=== PATIENT | female | born 1940 | race African-American/Black ===

== ENCOUNTER 2017-02-12 06:55 | Day surgery (SDC) | payer MEDICARE ==
[2017-02-12] MEDS ORDERED: DIPRIVAN 10 MG/ML IV ONE ×2 (07:32)
--- NOTE | 2017-02-12 07:53 | Anesthesia Day of Surgery ---
Anesthesia Day of Surgery - Day of Surgery Patient Examined: Yes Patient H&P Reviewed: Yes Patient is NPO: Yes
--- NOTE | 2017-02-12 07:53 | Anesthesia Consultation ---
Anesthesia Consult and Med Hx Date of service: 02/12/17 - Airway Anesthetic Teeth Evaluation: Poor ROM Head & Neck: Adequate Mental/Hyoid Distance: Adequate Mallampati Class: Class II Intubation Access Assessment: Probably Good - Pulmonary Exam CTA: Yes - Cardiac Exam Cardiac Exam: RRR - Pre-Operative Health Status ASA Pre-Surgery Classification: ASA3 Proposed Anesthetic Plan: MAC - Cardiovascular System Hx Hypertension: Yes - Gastrointestinal Hx Gastroesophageal Reflux Disease: Yes - Endocrine Hx Non-Insulin Dependent Diabetes: Yes
[2017-02-12] MEDS ORDERED: NACL 0.9% 1000 ML 1,000 ML IV SCH (08:00)
[2017-02-12] MEDS ORDERED: XYLOCAINE 2% INFILTRATI ONE (08:18)
[2017-02-12] MEDS ORDERED: ROBINUL ONE (08:37)
--- NOTE | 2017-02-12 08:55 | Short Stay Summary ---
Short Stay Documentation - Allergies and Medications Current Medications: Allergies No Known Allergies Allergy (Verified 09/17/15 11:51) Home Medications Medication Instructions Recorded Confirmed Last Taken Type AtorvaSTATin 1 cap PO DAILY 09/17/15 09/18/15 09/16/15 History Benzonatate 1 cap PO DAILY 09/17/15 09/18/15 09/16/15 History Meclizine 1 tab PO PRN PRN 09/17/15 09/18/15 09/16/15 History Metoprolol 1 tab PO DAILY 09/17/15 09/18/15 09/17/15 History Norvasc 1 tab PO DAILY 09/17/15 09/18/15 09/16/15 History Omeprazole [Omeprazole] 1 cap PO DAILY 09/17/15 09/18/15 09/16/15 History Ranitidine HCl [Zantac 300 MG TAB] 1 tab PO DAILY 09/17/15 09/18/15 09/16/15 History Active Medications Sodium Chloride (Nacl 0.9% 1000 Ml) 1,000 mls @ 50 mls/hr IV DIRECT MARY Last Admin: 02/12/17 07:53 Dose: 50 mls/hr - Brief post op/procedure progress note Date of procedure: 02/12/17 Pre-op diagnosis: Colon cancer screening Post-op diagnosis: same (1. Incomplete colonoscopy due to a poor prep 2. Internal hemorrhoids) Procedure: Colonoscopy ( incomplete) Anesthesia: MAC Findings: As above Surgeon: WILBER RECINOS Estimated blood loss: none Pathology: none Condition: stable - Disposition Condition at discharge: Stable Disposition: DISCHARGED TO HOME OR SELFCARE Short Stay Discharge Plan Activity: no restrictions Weight Bearing Status: Full Weight Bearing Diet: regular Follow up with: BOLIVAR SANCHEZ III, MD [Primary Care Provider] - 7 Days
[2017-02-12 09:15] VITALS: BP 150/81
[2017-02-12] MEDS ORDERED: WATER FOR IRRIG STERILE IR ONE (09:40)
--- NOTE | 2017-02-12 13:45 | Post Anesthesia Evaluation ---
- Post Anesthesia Evaluation Patient Participated: Yes Airway Patent: Yes Stable Respiratory Function: Yes Nausea/Vomiting: No Temp > 96.8F: Yes Pain Manageable: Yes Adequeate Hydration: Yes Anesthesia Complications: No Block Receding Appropriately: Not Applicable Patient on Ventilator: No
== END 2017-02-12 06:56 | disposition home or self-care (01) ==
LOC: GIO 06:55
PROVIDERS: ATTEND Internal Medicine Gastroenterology
DX: Z12.11 Encounter for screening for malignant neoplasm of colon (principal); K64.0 First degree hemorrhoids; I10 Essential (primary) hypertension; E11.9 Type 2 diabetes mellitus without complications; E78.00 Pure hypercholesterolemia, unspecified; K21.9 Gastro-esophageal reflux disease without esophagitis; Z98.41 Cataract extraction status, right eye; Z98.890 Other specified postprocedural states
CPT/HCPCS: 82962; G0121; J2704; J7030

== ENCOUNTER 2017-04-12 22:58 | Emergency (ER) | payer MEDICARE ==
[2017-04-13] MEDS ORDERED: NACL 0.9% 1000 ML 1,000 ML IV ONE ×2 (00:05→00:06)
[2017-04-13] MEDS ORDERED: ZOFRAN IV ONE (00:06)
--- NOTE | 2017-04-13 00:12 | Emergency Department Report ---
ED N/V/D HPI - General Stated complaint: ABDOMINAL PAIN Time Seen by Provider: 04/12/17 23:57 Source: patient - History of Present Illness complaint: nausea, vomiting, abdominal pain -: Gradual Description of Vomiting: food contents, watery Associated Abdominal Pain: Yes Location: diffuse (no pain in the ER) Radiation: none Severity: mild Pain Scale: 2 Quality: cramping Consistency: intermittent Improves with: none Worsens with: none Associated Symptoms: nausea/vomiting. denies: myalgias, chest pain, cough, diaphoresis, fever/chills, headaches, loss of appetite, malaise, shortness of breath, syncope - Related Data Home Medications Medication Instructions Recorded Confirmed Last Taken AtorvaSTATin 1 cap PO DAILY 09/17/15 09/18/15 09/16/15 Benzonatate 1 cap PO DAILY 09/17/15 09/18/15 09/16/15 Meclizine 1 tab PO PRN PRN 09/17/15 09/18/15 09/16/15 Metoprolol 1 tab PO DAILY 09/17/15 09/18/15 09/17/15 Norvasc 1 tab PO DAILY 09/17/15 09/18/15 09/16/15 Omeprazole [Omeprazole] 1 cap PO DAILY 09/17/15 09/18/15 09/16/15 Ranitidine HCl [Zantac 300 MG TAB] 1 tab PO DAILY 09/17/15 09/18/15 09/16/15 Previous Rx's Medication Instructions Recorded Last Taken Type Ondansetron [Zofran Odt] 4 mg PO Q8HR #15 tab.rapdis 04/13/17 Unknown Rx Allergies Allergy/AdvReac Type Severity Reaction Status Date / Time No Known Allergies Allergy Verified 09/17/15 11:51 ED Review of Systems ROS: Stated complaint: ABDOMINAL PAIN Other details as noted in HPI Comment: All other systems reviewed and negative ED Past Medical Hx - Past Medical History Hx Hypertension: Yes Hx HIV: No - Social History Smoking Status: Never Smoker - Medications Home Medications: Home Medications Medication Instructions Recorded Confirmed Last Taken Type AtorvaSTATin 1 cap PO DAILY 09/17/15 09/18/15 09/16/15 History Benzonatate 1 cap PO DAILY 09/17/15 09/18/15 09/16/15 History Meclizine 1 tab PO PRN PRN 09/17/15 09/18/15 09/16/15 History Metoprolol 1 tab PO DAILY 09/17/15 09/18/15 09/17/15 History Norvasc 1 tab PO DAILY 09/17/15 09/18/15 09/16/15 History Omeprazole [Omeprazole] 1 cap PO DAILY 09/17/15 09/18/15 09/16/15 History Ranitidine HCl [Zantac 300 MG TAB] 1 tab PO DAILY 09/17/15 09/18/15 09/16/15 History Ondansetron [Zofran Odt] 4 mg PO Q8HR #15 tab.rapdis 04/13/17 Unknown Rx ED Physical Exam - General General appearance: alert, in no apparent distress - Head Head exam: Present: atraumatic, normocephalic - Eye Eye exam: Present: normal appearance, PERRL - ENT ENT exam: Present: normal exam, normal orophraynx, mucous membranes moist - Neck Neck exam: Present: normal inspection - Respiratory Respiratory exam: Present: normal lung sounds bilaterally. Absent: respiratory distress - Cardiovascular Cardiovascular Exam: Present: regular rate, normal rhythm. Absent: systolic murmur, diastolic murmur, rubs, gallop - GI/Abdominal GI/Abdominal exam: Present: soft, normal bowel sounds. Absent: distended, tenderness, guarding, rebound, rigid - Extremities Exam Extremities exam: Present: normal inspection, full ROM - Back Exam Back exam: Present: normal inspection - Neurological Exam Neurological exam: Present: alert, oriented X3 - Psychiatric Psychiatric exam: Present: normal affect, normal mood - Skin Skin exam: Present: warm, dry, intact, normal color. Absent: rash ED Course Vital Signs 04/13/17 00:10 Temperature 97.7 F Pulse Rate 83 Blood Pressure 148/64 O2 Sat by Pulse 97 Oximetry - Reevaluation(s) Reevaluation #1: 04/13/17 01:04 reexamination, patient comfortably in the bed , no pain no vomiting and tolerating po fluids, cbc is negative but still waiting for rest of the labs, ekg and cxr also negative/ Reevaluation #2: 04/13/17 01:16 patient with normal cmp except for mild hypokalemia, will dc and follow up with PMD or us within 24h, ED Medical Decision Making - Lab Data Result diagrams: 04/13/17 00:23 04/13/17 00:23 - EKG Data -: EKG Interpreted by Me EKG shows normal: sinus rhythm - EKG Data When compared to previous EKG there are: no significant change Interpretation: no acute changes, normal EKG - Radiology Data Radiology results: report reviewed, image reviewed Critical care attestation.: If time is entered above; I have spent that time in minutes in the direct care of this critically ill patient, excluding procedure time. ED Disposition Clinical Impression: Vomiting Disposition: DC-01 TO HOME OR SELFCARE Is pt being admited?: No Does the pt Need Aspirin: No Condition: Good Instructions: Acute Nausea and Vomiting (ED), Abdominal Pain (ED) Prescriptions: Ondansetron [Zofran Odt] 4 mg PO Q8HR #15 tab.rapdis Referrals: PRIMARY CARE, [Primary Care Provider] - 3-5 Days
[2017-04-13 00:15] VITALS: BP 148/64
[2017-04-13 00:56] LABS: Basophils % (Auto) 0.4 % (0.0-1.8); Eosinophils % (Auto) 0.4 % (0.0-4.3); Hematocrit 38.9 % (30.3-42.9); Hemoglobin 13.5 gm/dl (10.1-14.3); Mean Corpuscular HGB Conc 35 % (30-34); Mean Corpuscular Hemoglobin 31 pg (28-32); Mean Corpuscular Volume 90 fl (79-97); Platelet Count 249 K/mm3 (140-440); Red Blood Count 4.31 M/mm3 (3.65-5.03); Red Cell Distribution Width 13.1 % (13.2-15.2); White Blood Count 8.2 K/mm3 (4.5-11.0)
[2017-04-13 01:05] LABS: INR 0.89 (0.87-1.13)
[2017-04-13 01:12] LABS: Alanine Aminotransferase 28 units/L (7-56); Albumin 4.5 g/dL (3.9-5); Albumin/Globulin Ratio 1.4 %; Alkaline Phosphatase 117 units/L (35-129); Anion Gap 18 mmol/L; BUN/Creatinine Ratio 26.66; Blood Urea Nitrogen 16 mg/dL (7-17); Calcium 9.4 mg/dL (8.4-10.2); Carbon Dioxide 27 mmol/L (22-30); Chloride 88.9 mmol/L (98-107); Glucose 138 mg/dL (65-100); Lipase 31 units/L (13-60); Potassium 3.1 mmol/L (3.6-5.0); Sodium 131 mmol/L (137-145); Total Protein 7.7 g/dL (6.3-8.2)
--- NOTE | 2017-04-13 09:58 | XRay Report ---
PORTABLE CHEST INDICATION: Chest pain. COMPARISON: 02/04/[address] report. FINDINGS: Portable, frontal chest radiograph suggests top normal heart size. Aortic knob calcifications. Approximately 6 mm old right middle lobe calcified granuloma. No pleural effusions or CHF. Few bony degenerative changes. CONCLUSION: No acute chest process, as described. Thank you for the opportunity to participate in this patient's care.
== END 2017-04-13 02:22 | disposition home or self-care (01) ==
LOC: ED 22:58
DX: R11.11 Vomiting without nausea (principal); I10 Essential (primary) hypertension
CPT/HCPCS: 36415; 71010; 80053; 83690; 84484; 85025; 85610; 93005; 93010; 96361; 96374; 99284; J2405; J7030

== ENCOUNTER 2017-04-17 13:07 | Emergency (ER) | payer MEDICARE ==
[2017-04-17 14:51] VITALS: BP 139/64
[2017-04-17 15:29] LABS: Basophils % (Auto) 0.2 % (0.0-1.8); Eosinophils % (Auto) 0.2 % (0.0-4.3); Hemoglobin 13.7 gm/dl (10.1-14.3); Mean Corpuscular HGB Conc 34 % (30-34); Mean Corpuscular Hemoglobin 31 pg (28-32); Mean Corpuscular Volume 89 fl (79-97); Platelet Count 275 K/mm3 (140-440); Red Blood Count 4.49 M/mm3 (3.65-5.03); White Blood Count 10.5 K/mm3 (4.5-11.0)
[2017-04-17 15:34] LABS: Bilirubin,Urine NEG (Negative); Blood,Urine NEG (Negative); Ketones,Urine NEG (Negative); Leukocyte Esterase,Urine NEG (Negative); Nitrite,Urine NEG (Negative); Protein,Urine <15 mg/dL mg/dL (Negative); RBC,Urine < 1.0 /HPF (0.0-6.0); Urobilinogen,Urine < 2.0 mg/dL (<2.0)
[2017-04-17 15:39] LABS: Albumin 4.3 g/dL (3.9-5); Albumin/Globulin Ratio 1.4 %; Bilirubin,Total 0.7 mg/dL (0.1-1.2); Calcium 8.8 mg/dL (8.4-10.2); Chloride 82.9 mmol/L (98-107); Total Protein 7.3 g/dL (6.3-8.2)
[2017-04-17 15:44] LABS: Potassium 2.8 mmol/L (3.6-5.0)
== END 2017-04-17 18:18 | disposition left against medical advice (07) ==
LOC: ED 13:07
DX: R11.10 Vomiting, unspecified (principal); Z53.21 Procedure and treatment not carried out due to patient leaving prior to being seen by health care provider
CPT/HCPCS: 36415; 80053; 81001; 83690; 85025